=== PATIENT | male | born 1975 | race Two or more races ===

== ENCOUNTER 2024-08-03 18:12 | Emergency (ER) | payer MEDICAID, SELFPAY ==
[2024-08-03 18:50] VITALS: BP 160/98; PULSE 69; RESP 16; TEMP 37.1; O2SAT 97; BMI 26.6
--- NOTE | 2024-08-03 18:50 | PD.EDRME ---
Rapid Medical Screening Exam RME Arrival date/time: 08/03/24 18:12 48 year old mal present to ED for c/o of increase thirst/urinating for 10 days, seen at clinic + elevated blood glucose I have greeted and performed a focused initial assessment of this patient. A comprehensive ED assessment and evaluation of the patient, analysis of all test results, and completion of the medical decision making process will be conducted by additional ED providers. Chief Complaint: General Adult/Misc Complain Time Seen by Provider: 08/03/24 18:32
[2024-08-03 19:22] LABS: Basophils % (Auto) 0 % (0-2.5); Eosinophils # (Auto) 0.1 Thou/mm3 (0.0-0.5); Eosinophils % (Auto) 1 % (0-10); Hematocrit 42.6 % (41.0-53.0); Hemoglobin 15.2 g/dL (13.5-16.0); Immature Granulocytes % (Auto) 0 % (0-0); Immature Granulocytes Auto 0.02 Thou/mm3 (0.00-0.00); Lactate (Lactic Acid) 1.5 mMol/L (0.4-2.0); Lymphocytes # (Auto) 2.7 Thou/mm3 (1.0-4.8); Lymphocytes % (Auto) 29 % (10-50); Mean Corpuscular HGB Conc 35.7 g/dl (31.0-37.0); Mean Corpuscular Hemoglobin 29.9 pg (25.0-35.0); Mean Corpuscular Volume 84 fL (80-100); Monocytes # (Auto) 0.4 Thou/mm3 (0.0-0.8); Monocytes % (Auto) 4 % (0-12); Neutrophils # (Auto) 6.3 Thou/mm3 (1.8-7.7); Neutrophils % (Auto) 66 % (37-80); Nucleated Red Blood Cell % 0 /100 WBC (0); Platelet Count 262 Thou/mm3 (140-440); RDW Standard Deviation 36.5 fL (35.1-43.9); Red Blood Count 5.08 Miln/mm3 (4.50-5.90); White Blood Count 9.5 Thou/mm3 (3.8-10.6)
[2024-08-03 19:25] LABS: Collection Type, Urine Voided; Squamous Epithelial Cell,Urine 0 /hpf (0-5)
[2024-08-03 19:28] LABS: Beta Hydroxybutyrate 0.2 mmol/L (<0.6)
[2024-08-03 19:33] LABS: Bilirubin,Urine Negative (Negative); Blood,Urine Negative (Negative); Clarity,Urine Clear (Clear/Hazy); Color,Urine Colorless (Lt Yel-Yel); Glucose, Urine 4+ (Negative); Ketones,Urine Negative (Negative); Leukocyte Esterase,Urine Negative (Negative); Nitrite,Urine Negative (Negative); Protein,Urine Negative (Neg - Trace); RBC,Urine 1 /hpf (0-3); Specific Gravity,Urine 1.039 (1.001-1.035); Urobilinogen,Urine Negative mg/dL (0.0-1.0); WBC,Urine < 1 /hpf (0-5)
[2024-08-03 19:42] LABS: Alanine Aminotransferase 44 U/L (10-49); Albumin, Serum 4.6 gm/dL (3.5-5.0); Albumin/Globulin Ratio 1.5 (1.2-2.2); Alkaline Phosphatase 249 U/L (46-116); Anion Gap 9 (7-16); Aspartate Amino Transferase 28 U/L (0-34); BUN/Creatinine Ratio 15 Ratio (12-20); Bilirubin,Total 0.7 mg/dL (0.3-1.2); Blood Urea Nitrogen 12 mg/dL (9-23); Calcium 10.2 mg/dL (8.3-10.6); Calcium (Corrected) 10.2 mg/dL (8.5-10.1); Carbon Dioxide 26.9 mMol/L (20.0-31.0); Chloride 99 mMol/L (98-107); Creatinine (Component) 0.8 mg/dL (0.6-1.3); Estimated Creatinine Clearance 99.7 mL/min (>60); Globulin 3.1 gm/dL (2.3-3.5); Glucose 388 mg/dL (74-106); Magnesium 2.2 mg/dL (1.6-2.6); Osmolality,Calculated 285 (275-295); Potassium 3.9 mMol/L (3.4-5.1); Sodium 135 mMol/L (136-145); Total Protein 7.7 gm/dL (5.7-8.2); eGFR > 60 See Note
[2024-08-03 19:54] VITALS: BP 163/92; PULSE 60; RESP 18; TEMP 37.1; O2SAT 99
[2024-08-03] MEDS: SODIUM CHLORIDE 0.9% 1000 ML 1,000 ML 999 ML IV (20:01)
[2024-08-03 21:03] LABS: Glucose Estimated Average 326 mg/dL (80-131)
--- NOTE | 2024-08-03 21:43 | PD.EDADULT ---
ED General RME/HPI General Chief complaint: General Adult/Misc Complain Stated complaint: SENT BY [facility] FOR HIGH BP Time Seen by Provider: 08/03/24 18:32 Source: patient Arrival date/time: 08/03/24 18:12 Mode of arrival: ambulatory Limitations: no limitations RME / HPI RME / HPI narrative: 08/03/24 18:12 48 year old mal present to ED for c/o of increase thirst/urinating for 10 days, seen at clinic + elevated blood glucose I have greeted and performed a focused initial assessment of this patient. A comprehensive ED assessment and evaluation of the patient, analysis of all test results, and completion of the medical decision making process will be conducted by additional ED providers. Dr. Caballero?s Main ED Evaluation: 48-year-old male presents with a 10-day history of increased thirst and urinary frequency. He denies dizziness, unintentional weight loss, chest pain, shortness of breath, abdominal pain, dysuria, or back pain. He was initially evaluated at a clinic but was referred to the emergency department as they were unable to manage his condition, they could not take care of him. He currently has no established primary care provider. Related Data Previous Rx's ?Medication ?Instructions ?Recorded metformin 500 mg tablet 500 mg PO BID #60 tabs 08/03/24 Allergies Allergy/AdvReac Type Severity Reaction Status Date / Time No Known Allergies Allergy Verified 08/03/24 18:18 Review of Systems Review of Systems Systems Reviewed: All systems reviewed, normal except as documented Past Medical History Past Medical History CARDIAC: Negative Congestive Heart Failure RESPIRATORY: Negative Chronic Obstructive Pulmonary Disease (COPD) GENITOURINARY: Negative Renal Disease ENDOCRINE: Negative Diabetes Mellitus Type 1 or Diabetes Mellitus Type 2 Social History SMOKING STATUS: Never smoker ED Exam General Limitations: Present no limitations General appearance: Present alert and in no apparent distress Head Head exam: Present atraumatic Eye Eye exam: Present normal appearance, PERRL and EOMI ENT ENT exam: Present normal exam, normal oropharynx and mucous membranes moist Neck Neck exam: Present normal inspection, full ROM and trachea midline Chest Chest inspection: Present normal inspection and symmetric chest wall rise Respiratory Respiratory exam: Present normal lung sounds bilaterally Cardiovascular Cardiovascular exam: Present regular rate, normal rhythm and normal heart sounds Abdominal Exam Abdominal exam: Present soft and normal bowel sounds Extremities Exam Extremities exam: Present normal inspection and full ROM Back Exam Back exam: Present normal inspection and full ROM Neurological Exam Neurological exam: Present alert, oriented X3 and CN II-XII intact Psychiatric Psychiatric exam: Present normal affect and normal mood Skin Skin exam: Present warm, dry, intact and normal color Course Quality Measures none Orders Category Date Time Status Blood glucose [Bedside Blood Glucose] NOW Care 08/03/24 18:49 Active Insert IV STAT Care 08/03/24 18:49 Active Beta Hydroxybutyrate Stat Lab 08/03/24 19:07 Completed CBC Stat Lab 08/03/24 19:07 Completed CMP [Comprehensive Metabolic Panel] Stat Lab 08/03/24 19:07 Completed Hemoglobin A1C [Glycohemoglobin w (eAG)] Stat Lab 08/03/24 19:07 Completed Lactic Acid [Lactate (Lactic Acid)] Stat Lab 08/03/24 19:07 Completed Mag [Magnesium] Stat Lab 08/03/24 19:07 Completed UA [Urinalysis] Stat Lab 08/03/24 19:21 Completed Sodium Chloride 0.9% 1000 ml [Ns] 1,000 ml Med 08/03/24 18:50 Discontinued IV 999 mls/hr metFORMIN [Glucophage] Med 08/03/24 21:56 Discontinued 500 mg PO X1 ONE Vital Signs Vital signs: Vital Signs Temperature 98.8 F 08/03/24 18:50 Pulse Rate 69 08/03/24 18:50 Respiratory Rate 16 08/03/24 18:50 Blood Pressure 160/98 H 08/03/24 18:50 Pulse Oximetry (%) 97 08/03/24 18:50 Oxygen Delivery Method Room Air 08/03/24 18:50 [facility] Patient data External records reviewed:: [facility] previous records Clinical information provided by:: patient Social determinants that could affect healthcare access:: alcohol use Patient has the following chronic illnesses:: New onset of diabetes How is presenting disease/condition affected by chronic disease/condition?: uneffected by Evaluation data The following diagnostics were reviewed and interpreted by me:: lab results Lab and/or radiology exams considered but not ordered:: n/a Interpretation Summary: See MDM narrative Medications Medications considered but not ordered:: n/a Medication administrations:: Medication Administration History Discontinued Medications Sodium Chloride (Ns) 1,000 mls @ 999 mls/hr IV .Q1H1M ONE Stop: 08/03/24 19:50 Last Infusion: 08/03/24 21:02 Dose: Infused Documented By: Admin: 08/03/24 20:01 Dose: 999 mls/hr Documented By: EF Metformin HCl (Metformin 500 Mg Tablet) 500 mg PO X1 ONE Stop: 08/03/24 21:57 as above Consultations Consultation(s) initiated? (list below): No Consultation #1 (Physician, Specialty, Details): Case discussed with Dr. Weiss, hospitalist, who agrees that the patient can follow up tomorrow at the [facility] for diabetic teaching and further medication management. Diagnosis Differential Diagnosis ED Complaint MDM: see MDM narrative Most likely diagnosis given after review of the tests above:: see clinical impression below Admission Indicated Admission indicated?: not indicated Explain why admission is indicated or not indicated:: Admission is not indicated at this time as the patient is clinically stable and can be safely managed on an outpatient basis with follow-up arranged at the [facility] for diabetic teaching and medication management. Admission Request Was there a request for admission?: No Disposition Plan Disposition Plan: Discharge Discharge Attestation Discharge Attestation: The patient and all family members were given an opportunity to ask questions and understood the discharge instructions. Discharge instructions specifically effects, indications for sooner follow up or return to the emergency department, and the expected course of current diagnosis. Patient condition: Stable Medical Decision Making MDM Narrative MDM Narrative: 48-year-old male with history of with increased urine output and thirst over the last 10 days. Patient was seen in the clinic and told he needed to come to the emergency department. His hemoglobin A1c is 13 otherwise beta-hydroxybutyrate is normal and the patient does not have DKA. Labs are reviewed and BUN is 12, creatinine is 0.8. Otherwise normal LFTs except for alk phos which is 248.. Sodium is 135 and a potassium of 3.9. CO2 is 26. Space of gravity 0.039 which is consistent with dehydration. Differential diagnosis includes new onset diabetes, type 2 diabetes, hyperglycemia, no evidence of kidney failure, dehydration While in the emergency department the patient is given a liter of fluid and repeat fingerstick is obtained. Patient otherwise is not dizzy, please see nurses notes for repeat fingerstick. I suspect the patient likely has diabetes. After reviewing the clinical findings and laboratory results, I discussed the case with Dr. Weiss, hospitalist who did not do a written consult but reviewed his chart. At this time, we feel it is appropriate to initiate diabetic treatment with metformin 500 mg BID. The patient has been instructed to follow up with the [facility] tomorrow at 9:00 AM for diabetic education, further evaluation, and continuation of care. Directions and the clinic address have been provided. The first dose of metformin was administered in the ED today. The patient was advised to speak with the clinic tomorrow regarding the need for glucose monitoring equipment and any additional medications or support. The patient was counseled to avoid sugared beverages tonight and to stay well-hydrated with water. The patient was advised to return to the Emergency Department before the scheduled appointment if they experience dizziness, feeling unwell, chest pain, shortness of breath, or any other concerning symptoms. Scribe Attestation: I, Kenia Lynch, am scribing for and in the presence of Dr. Caballero. Provider Notation: Although this document has been carefully reviewed, there may still be some phonetic and other typographical errors. These errors are purely grammatical due to imperfections in the software program and should not be construed in any way to compromise the substance of the patient's medical care during this visit. Differential Diagnosis Differential Diagnosis: see MDM narrative Medical Records Medical records reviewed: Yes I reviewed the patient's medical records. Lab Data Lab results reviewed: Yes I reviewed the patient's lab results. 08/03/24 19:07 08/03/24 19:07 Labs: Lab Results 08/03/24 08/03/24 Range/Units 19:07 19:21 WBC 9.5 (3.8-10.6) Thou/mm3 RBC 5.08 (4.50-5.90) Miln/mm3 Hgb 15.2 (13.5-16.0) g/dL Hct 42.6 (41.0-53.0) % MCV 84 (80-100) fL MCH 29.9 (25.0-35.0) pg MCHC 35.7 (31.0-37.0) g/dl RDW Std Deviation 36.5 (35.1-43.9) fL Plt Count 262 (140-440) Thou/mm3 Neut % (Auto) 66 (37-80) % Lymph % (Auto) 29 (10-50) % [place] % (Auto) 4 (0-12) % Eos % (Auto) 1 (0-10) % Baso % (Auto) 0 (0-2.5) % Neut # (Auto) 6.3 (1.8-7.7) Thou/mm3 Lymph # (Auto) 2.7 (1.0-4.8) Thou/mm3 [place] # (Auto) 0.4 (0.0-0.8) Thou/mm3 Eos # (Auto) 0.1 (0.0-0.5) Thou/mm3 Baso # (Auto) 0.0 (0.0-0.2) Thou/mm3 Immature Gran # (Auto) 0.02 H (0.00-0.00) Thou/mm3 Absolute Nucleated RBC 0.00 (0.00-0.00) Thou/mm3 Immature Gran % 0 (0-0) % Nucleated RBC % 0 (0) /100 WBC Sodium 135 L (136-145) mMol/L Potassium 3.9 (3.4-5.1) mMol/L Chloride 99 (98-107) mMol/L Carbon Dioxide 26.9 (20.0-31.0) mMol/L Anion Gap 9 (7-16) BUN 12 (9-23) mg/dL Creatinine 0.8 (0.6-1.3) mg/dL Estim Creat Clear Calc 99.7 (>60) mL/min eGFR > 60 (60 - ) See Note BUN/Creatinine Ratio 15 (12-20) Ratio Glucose 388 H (74-106) mg/dL Estimated Ave Glu mg/dL 326 H (80-131) mg/dL Hemoglobin A1c 13.0 H (4.8-6.0) % Hgb Calculated Osmolality 285 (275-295) Lactic Acid 1.5 (0.4-2.0) mMol/L Calcium 10.2 (8.3-10.6) mg/dL Corrected Calcium 10.2 H (8.5-10.1) mg/dL Magnesium 2.2 (1.6-2.6) mg/dL Total Bilirubin 0.7 (0.3-1.2) mg/dL AST 28 (0-34) U/L ALT 44 (10-49) U/L Alkaline Phosphatase 249 H (46-116) U/L Total Protein 7.7 (5.7-8.2) gm/dL Albumin 4.6 (3.5-5.0) gm/dL Globulin 3.1 (2.3-3.5) gm/dL Albumin/Globulin Ratio 1.5 (1.2-2.2) Beta-Hydroxybutyrate/Acetoacetate 0.2 (<0.6) mmol/L Ur Collection Type Voided Urine Color Colorless A (Lt Yel-Yel) Urine Clarity Clear (Clear/Hazy) Urine pH 6.0 (5.0-7.0) Ur Specific [place] 1.039 H (1.001-1.035) Urine Protein Negative (Neg - Trace) Urine Glucose (UA) 4+ A (Negative) Urine Ketones Negative (Negative) Urine Blood Negative (Negative) Urine Nitrite Negative (Negative) Urine Bilirubin Negative (Negative) Urine Urobilinogen (Auto) Negative (0.0-1.0) mg/dL Ur Leukocyte Esterase Negative (Negative) Urine RBC 1 (0-3) /hpf Urine WBC < 1 (0-5) /hpf Ur Squamous Epith Cells 0 (0-5) /hpf Urine Bacteria None (None) Discharge Plan Plan Patient Disposition: HOME (Self Care) Patient condition on transfer: Stable Prescriptions/Referrals Prescriptions/Med Rec: New metformin 500 mg tablet 500 mg PO BID Qty: 60 1RF Referrals: [facility] [Other] - 08/04/24 9:00 am (You must go to this appointment so that you can get diabetic teaching and nutrition consult and any further diabetic equipment that you need. ) No Primary/Family,Physician [Primary Care Provider] - In 1 week Problem List Clinical Impression: Elevated blood sugar, Elevated hemoglobin A1c Patient/Caregiver Discharge Instructions Education Materials: High Blood Sugar (Hyperglycemia), ED Hypertension, To Be Confirmed, ED Diet: Diabetes, ED Hyperglycemia New Susp Diabetes Additional Instructions: 1. I suspect that you probably have diabetes and you will need to be started on diabetic medications. We have discussed your case with Dr. Weiss, the hospitalist and at this time we feel that you need to start metformin twice a day. 2. You will need to follow-up with the [facility] tomorrow at 9 AM please see directions and address above. 3. I have given you your first dose of metformin today however tomorrow you will need to talk to the clinic to see if you need any additional equipment and glucose monitoring. 4. Avoid drinking sugared drinks tonight. Stay hydrated with water. Return to emergency department tonight before your appointment tomorrow at 9 AM for dizziness, headache, numbness or weakness, you feel like he you do not feel well, any chest pain, shortness of breath, or any other concerns. 5. Your blood pressure is elevated today as well. Your clinic will need to check your blood pressure over the next 1 week to decide if you need to go on blood pressure medications. [facility] [address], [place] [address] Hours: Sunday - Sunday, 8 AM - 4:30 PM (Closed 12 PM - 1 PM) Contact Us: Print Language: Serbian Stand Alone Forms: Simi Award Info., Work/School Release, Patient Portal Info Letter
[2024-08-03] MEDS: metFORMIN 500 MG TABLET PO (22:10)
[2024-08-03 22:27] VITALS: BP 169/95; PULSE 58; RESP 16; TEMP 36.6; O2SAT 99
== END 2024-08-03 22:28 | disposition home or self-care (01) ==
PROVIDERS: Physician Assistant; Emergency Provider Emergency Medicine
DX: E11.65 Type 2 diabetes mellitus with hyperglycemia (principal)
CPT/HCPCS: 36415; 80053; 81001; 82010; 83036; 83605; 83735; 85025; 96360; 99281; 99284; J7030; A9270

== ENCOUNTER 2024-08-04 08:54 | Outpatient (AMB) | payer MEDICAID, SELFPAY ==
--- NOTE | 2024-08-04 09:09 | PD.RESCLINIC ---
Vital Signs 08/04/24 09:10 Height 1.68 m Height Method Stated Weight 75.466 kg Weight Measurement Method Standing Scale BMI 26.7 BP 153/80 H Blood Pressure Source Automatic Cuff Blood Pressure Location Left Upper Arm Position Sitting Respiration 16 Pulse 54 L Pulse Source Monitor Temp 98.1 F Temp Source Temporal Artery Scan Pulse Oximetry (%) 95 Oxygen Delivery Method Room Air Allergies/Meds Allergies & Medications Allergies No Known Allergies Allergy (Verified 08/04/24 09:12) Medication Reconciliation blood sugar diagnostic (Accu-Chek Guide test strips) #100 ea 08/04/24 [Rx] blood-glucose meter (Accu-Chek Guide Me Glucose Meter) #1 ea 08/04/24 [Rx] insulin glargine 100 unit/mL (3 mL) subcutaneous pen (Lantus Solostar U-100 Insulin) 10 unit (0.1 mL) subcut QPM #15 mL 08/04/24 [Rx] lancets 23 gauge (Accu-Chek Safe-T-Pro) #200 ea 08/04/24 [Rx] lisinopril 10 mg tablet 10 mg PO QDAY 2 months #60 tabs 08/04/24 [Rx] metformin 500 mg tablet 500 mg PO BID #60 tabs 08/04/24 [Rx] pen needle, diabetic 31 gauge x 1/4 (1st Tier Unifine Pentips Plus) #100 ea 08/04/24 [Rx] MA Intake Visit Data Collection New Patient or Established: Established Patient (seen at [facility] within 3 years) Seen by Clinical Staff ONLY (RN/MA): No Pain Present Currently: No Pain scale:: 0 Pain Scale Used: Santamaria-Simeon/Numerical [employer] Equipment Operator Required: Yes PCP or OBGYN visit in last 3 months: No Hx Now: No Do You Feel Safe at Home: Yes Authorities Contacted: N/A Smoking Status Smoking Status: Never smoker Immunization / Flu Flu Vaccine in the Last 12 Months: No Flu Vaccine Exclusion Criteria: No Exclusion Criteria Past Medical History Past Medical History CARDIAC: Negative Congestive Heart Failure RESPIRATORY: Negative Chronic Obstructive Pulmonary Disease (COPD) GENITOURINARY: Negative Renal Disease ENDOCRINE: Negative Diabetes Mellitus Type 1 or Diabetes Mellitus Type 2 Social History SMOKING STATUS: Smoking status: Never smoker Patient Portal Questionaires Social History Tobacco History Smoking Status: Never smoker Domestic Abuse History Do You Feel Safe at Home: Yes Review of Systems Report any current symptoms Only answer those that you have currently: Past Medical History Past Medical History Have you ever been diagnosed with any of the following: Cardiology Problems Congestive Heart Failure: No Respiratory Problems Chronic Obstructive Pulmonary Disease (COPD): No Genital/Urinary Problems Renal Disease: No Endocrine Problems Diabetes Mellitus Type 1: No Diabetes Mellitus Type 2: No History of Present Illness HPI Narrative 48 y/o M without previous medical history presents to clinic for follow up from ED visit. Patient presented to ED for polydipsia/polyuria, was found to have hA1c 13%. Patient also had multiple readings of elevated blood pressure. Patient seen in clinic for education and management. Patient denies weakness, fatigue, vision or sensory changes. Patient denies any family history of hypertension or diabetes. Provided education regarding diet, exercise, and medical management of diabetes was provided. Will see patient again in 1 month. Review of Systems Review of Systems Systems Reviewed: All systems reviewed, normal except as documented Objective/Exam Narrative Physical exam: PE: Gen: Well-developed and well-nourished. HEENT: NCAT, PERRLA, EOMI, MMM, anicteric conjunctivae. CVS: normal S1 and S2. RRR. No M/R/G. Resp: CTA B/L. No rhonchi, rales, crackles or wheezing. Abd: soft, non-tender, non-distended. MSK: Good ROM in BUE & BLE. No edema or rash. Neuro: CN II-XII grossly intact. Strength 5/5 in BUE & BLE. Alert and oriented x3. Psych: appropriate mood and affect. Assessment & Plan Diagnosis / Problem List (1) Type 2 diabetes mellitus with circulatory disorder: Status: Acute Qualifiers: Diabetes mellitus complication detail: with other circulatory complications Diabetes mellitus adjunct faculty for medical terminology insulin use: without chcf use Qualified Code(s): E11.59 - Type 2 diabetes mellitus with other circulatory complications Assessment & Plan: Patient hA1c 13% on 08/03/2024. No personal or family history of diabetes. No previous labs to compare. Education regarding diet and exercise was provided. Discussed medical management with patient, including insulin use. Plan: Metformin 500mg PO BID Lisinopril 10mg PO daily Lantus 10mg injection HS Educated patient on blood sugar checks, will review at next appointment Prescribed glucometer, lancets, and test strips Ordered lipid panel, UACR, CMP, will follow up with patient Will see again in 1 month (2) Hypertension associated with diabetes: Status: Acute Assessment & Plan: Patient has had elevated blood pressure on multiple checks, stating over 2 months ago. Likely complication of untreated DM type 2. Plan: Lisinopril 10mg PO daily Next appointment in 1 month, will review if further steps needed Plan Discussed with attending Dr. Miguel. Edwin Pedraza MD PGY-1 Additional Assessment Internal Medicine Attending Note: Case discussed with and agree with note and management plan of Resident Physician as per Resident's Note above. Issues of concern for present visit are as follows: New patient to clinic. Follow-up from emergency department visit for polyuria and polydipsia. Found on workup to have hemoglobin A1c of 13. Also noted to have multiple readings of elevated blood pressure. Diet, exercise, footcare, eye care reviewed. Patient will need to start on basal insulin injections along with metformin. We will order a glucometer and testing supplies. Patient instructed on blood sugar checks. Additionally, we will start the patient on lisinopril 10 mg daily. Check lipid panel, urine microalbumin creatinine ratio, and CMP. Follow-up in 2 to 4 weeks. Note: Telephone braille translator service utilized for discussions with patient. Eitan Miguel MD Physician Billing New Patient New Patient: E/M Level 4-CPT 74457 Office Procedures [facility] Level of Care Nursing/Assessment Patient Status: Established Patient Nursing Assessment/Reassessment: Medication Reconciliation, Update PMH in EMR and Vital Signs Coordination of Care: Complex Care and Chronic Disease 1-5, Consent,records obtained, informed consent, Education Simp Pt/Fam, Lab and Imaging orders and Staff clarify orders Special Needs: Language special needs Established Patient Charge Established Patient Point Assignment: 100 Established Patient Point Charge: EP Level 3 (80-115)
[2024-08-04 09:10] VITALS: BP 153/80; PULSE 54; RESP 16; TEMP 36.7; O2SAT 95; BMI 26.7
== END 2024-08-04 10:14 | disposition home or self-care (01) ==
LOC: HODAHC 08:54
PROVIDERS: Supervising Provider Internal Medicine
DX: I15.2 Hypertension secondary to endocrine disorders (principal); E11.59 Type 2 diabetes mellitus with other circulatory complications; Z79.84 Long term (current) use of oral hypoglycemic drugs; Z79.4 Long term (current) use of insulin
CPT/HCPCS: 99213; G0463

== ENCOUNTER 2024-09-01 09:16 | Outpatient (AMB) | payer MEDICAID, SELFPAY ==
--- NOTE | 2024-09-01 09:36 | ACNOTE_ITS ---
Vital Signs 09/01/24 09:37 Height 1.68 m Height Method Stated Weight 75.41 kg Weight Measurement Method Standing Scale BMI 26.7 BP 172/84 H Blood Pressure Source Automatic Cuff Blood Pressure Location Right Upper Arm Position Sitting Respiration 18 Pulse 56 L Pulse Source Monitor Temp 97.8 F Temp Source Temporal Artery Scan Pulse Oximetry (%) 97 Oxygen Delivery Method Room Air Allergies/Meds Allergies & Medications Allergies No Known Allergies Allergy (Verified 09/01/24 09:37) Medication Reconciliation atorvastatin 40 mg tablet 40 mg PO QHS 1 month #30 tabs 09/01/24 [Rx] blood sugar diagnostic (Accu-Chek Guide test strips) #100 ea 09/01/24 [Rx] blood-glucose meter (Accu-Chek Guide Me Glucose Meter) #1 ea 09/01/24 [Rx] lancets 23 gauge (Accu-Chek Safe-T-Pro) #200 ea 09/01/24 [Rx] lisinopril 20 mg tablet 20 mg PO QDAY 1 month #30 tabs 09/01/24 [Rx] metformin 500 mg tablet 500 mg PO BID #60 tabs 09/01/24 [Rx] semaglutide 3 mg tablet (Rybelsus) 3 mg PO QDAY 30 days #30 tabs 09/01/24 [Rx] MA Intake Visit Data Collection New Patient or Established: Established Patient (seen at [facility] within 3 years) Seen by Clinical Staff ONLY (RN/MA): No Pain Present Currently: No Pain scale:: 0 Pain Scale Used: Santamaria-Simeon/Numerical Senior Accounting Manager Required: Yes PCP or OBGYN visit in last 3 months: Yes Hx Now: No Do You Feel Safe at Home: Yes Authorities Contacted: N/A Smoking Status Smoking Status: Never smoker Immunization / Flu Flu Vaccine in the Last 12 Months: No Flu Vaccine Exclusion Criteria: Refused by Patient Past Medical History Past Medical History CARDIAC: Negative Congestive Heart Failure RESPIRATORY: Negative Chronic Obstructive Pulmonary Disease (COPD) GENITOURINARY: Negative Renal Disease ENDOCRINE: Negative Diabetes Mellitus Type 1 or Diabetes Mellitus Type 2 Social History SMOKING STATUS: Smoking status: Never smoker Patient Portal Questionaires Social History Tobacco History Smoking Status: Never smoker Domestic Abuse History Do You Feel Safe at Home: Yes Review of Systems Report any current symptoms Only answer those that you have currently: Past Medical History Past Medical History Have you ever been diagnosed with any of the following: Cardiology Problems Congestive Heart Failure: No Respiratory Problems Chronic Obstructive Pulmonary Disease (COPD): No Genital/Urinary Problems Renal Disease: No Endocrine Problems Diabetes Mellitus Type 1: No Diabetes Mellitus Type 2: No History of Present Illness HPI Narrative 48 y/o M without previous medical history presents to clinic for follow up from ED visit. Patient presented to ED for polydipsia/polyuria, was found to have hA1c 13%. Patient also had multiple readings of elevated blood pressure. Patient seen in clinic for education and management. Patient denies weakness, fatigue, vision or sensory changes. Patient denies any family history of hypertension or diabetes. 09/01/24: Patient seen in clinic for followup after starting new meds and getting labs. Patient did not go to pharmacy and start medications, or track blood sugar or blood pressure. In office blood pressure was significantly elevated at 172/84. Reviewed patients labs, which showed elevated LDL and triglycerides, elevated glucose, normal kidney function and UACR. [id number] need for medications and blood sugar checks. Patient showed significant apprehension regarding insulin injections, will attempt medical management with oral meds for now. Education regarding diet, exercise, and medical management of diabetes was p rovided. Will see patient again in 1 month. Review of Systems Review of Systems Systems Reviewed: All systems reviewed, normal except as documented Objective/Exam Narrative Physical exam: PE: Gen: Well-developed and well-nourished. HEENT: NCAT, PERRLA, EOMI, MMM, anicteric conjunctivae. CVS: normal S1 and S2. RRR. No M/R/G. Resp: CTA B/L. No rhonchi, rales, crackles or wheezing. Abd: soft, non-tender, non-distended. BS+ in all 4 quadrants. MSK: Good ROM in BUE & BLE. No edema or rash. Neuro: CN II-XII grossly intact. Strength 5/5 in BUE & BLE. Alert and oriented x3. Peripheral pinprick sensation intact. Psych: appropriate mood and affect. Assessment & Plan Diagnosis / Problem List (1) Type 2 diabetes mellitus with circulatory disorder: Status: Acute Qualifiers: Diabetes mellitus complication detail: with other circulatory complications Diabetes mellitus hospital pharmacy technician insulin use: without alf use Qualified Code(s): E11.59 - Type 2 diabetes mellitus with other circulatory complications Assessment & Plan: Patient hA1c 13% on 08/03/2024. No personal or family history of diabetes. No previous labs to compare. Education regarding diet and exercise was provided. Discussed medical management with patient, including insulin use. Outpatient glucose test over 400. Patient has not started any medications. Shows significant apprehension to injections, will try oral meds before starting insulin. Plan: Metformin 500mg PO BID Rybelsus 3mg PO daily Lisinopril 20mg PO daily Educated patient on blood sugar checks, will review at next appointment Prescribed glucometer, lancets, and test strips Will see again in 1 month (2) Hypertension associated with diabetes: Status: Acute Assessment & Plan: Patient has had elevated blood pressure on multiple checks, stating over 2 months ago. Likely complication of untreated DM type 2. In office blood pressure 172/84. Plan: Lisinopril 20mg PO daily Next appointment in 1 month, will review if further steps needed (3) Hyperlipidemia associated with type 2 diabetes mellitus: Status: Acute Assessment & Plan: Outpatient labs showed elevated LDL and triglycerides. LDL 147. Plan: Atorvastatin 40mg PO daily Plan Discussed with attending Dr. Miguel. Edwin Pedraza MD PGY-1 Additional Assessment Internal Medicine Attending Note: Patient examined and interviewed. Case discussed with and agree with note and management plan of Resident Physician as per Resident's Note above. Issues of concern for present visit are as follows: Follow-up visit. Previous visit was follow-up from emergency department where patient presented with polyuria and polydipsia. Patient was found to have a hemoglobin A1c of 13 along with multiple elevated blood pressure readings. No family history of hypertension or diabetes. Patient was initially placed on Lantus insulin 10 units daily along with metformin. We ordered glucometer and testing supplies. Patient was also started on lisinopril 10 mg daily. Today, patient reports not starting his medications as he did not pick them up from the pharmacy. Also did not get glucometer. Additional labs were reviewed today. Discussed diet, exercise, footcare, eye care. Patient is a senior field service engineer. As such, insulin injections may be difficult for him to initiate. He expresses much apprehension with insulin injections. Given limitations based on lifestyle/social situation, we will attempt medical management with oral medications for now. Patient will be started on an increased dose of metformin, GLP-1 (Rybelsus 3 mg daily) as well as potentially an SGLT2 at future visit. Start atorvastatin based on lipid panel. We will increase dose of Monique presyncopal to 20 mg daily as patient's blood pressure is in stage II hypertension range. Will likely need additional medication for blood pressure reduction. Follow-up in 1 month. Note also made that patient follows works seasonally, so in 6 months, he will likely be going north to [facility]. Eitan Miguel MD Physician Billing Established Patient Established Patient: E/M Level 4-CPT 52857 Office Procedures [facility] Level of Care Nursing/Assessment Patient Status: Established Patient Nursing Assessment/Reassessment: Medication Reconciliation, Update PMH in EMR and Vital Signs Coordination of Care: Complex Care and Chronic Disease 1-5, Consent,records obtained, informed consent, Education Simp Pt/Fam and Staff clarify orders Established Patient Charge Established Patient Point Assignment: 85 Established Patient Point Charge: EP Level 3 (80-115)
[2024-09-01 09:37] VITALS: BP 172/84; PULSE 56; RESP 18; TEMP 36.6; O2SAT 97; BMI 26.7
== END 2024-09-01 10:27 | disposition home or self-care (01) ==
LOC: HODAHC 09:16
PROVIDERS: Supervising Provider Internal Medicine
DX: E11.59 Type 2 diabetes mellitus with other circulatory complications (principal); I15.2 Hypertension secondary to endocrine disorders; E78.5 Hyperlipidemia, unspecified; Z79.84 Long term (current) use of oral hypoglycemic drugs
CPT/HCPCS: 99213; G0463